=== PATIENT | male | born 1970 | race Caucasian/White ===

== ENCOUNTER 2019-08-30 23:18 | Emergency (ER) | payer SELFPAY ==
[~2019-08-30] VITALS: Ht 172.7 cm; Wt 84.0 kg
[2019-08-30 23:22] VITALS: BP 165/85
--- NOTE | 2019-08-30 23:31 | NUR ---
FIRST CONTACT WITH PT. PT STATES THAT HE HAS BLISTERS ALL OVER HIS FEET. IN TRIAGE, PT STATES HE IS UNABLE TO REMOVE SOCKS AND SHOES BECAUSE THEY ARE STUCK TO HIS FEET. PT'S AOX4. RESPS EVEN AND UNLABORED.
--- NOTE | 2019-08-30 23:45 | NUR ---
PT TOOK OFF THE SHOES AT THIS TIME. PT C/O PAIN 07/17. PT IS AGITATED.
[2019-08-30] MEDS ORDERED: ZIPRASIDONE 20MG CAPSULE ONE (23:59)
[2019-08-31] MEDS ORDERED: ZIPRASIDONE 20MG CAPSULE PO SCH
--- NOTE | 2019-08-31 00:01 | NUR ---
PT MEDICATED PER EMAR. PT TOLERATED WELL.
[2019-08-31] MEDS ORDERED: NEOSPORIN OINT. PKT 1 PACKET ONE (00:50)
--- NOTE | 2019-08-31 00:57 | NUR ---
DRESSING APPLIED AT THIS TIME. PT TOLERATED WELL.
--- NOTE | 2019-08-31 01:08 | NUR ---
Patient given discharge instructions and they have confirmed that they understand the instructions.
== END 2019-08-31 01:09 | disposition home or self-care (01) ==
LOC: ED 23:58
DX: S91.332A Puncture wound without foreign body, left foot, initial encounter (principal); S91.331A Puncture wound without foreign body, right foot, initial encounter; I10 Essential (primary) hypertension; X58.XXXA Exposure to other specified factors, initial encounter; Y93.89 Activity, other specified; Y92.410 Unspecified street and highway as the place of occurrence of the external cause; Y99.8 Other external cause status
CPT/HCPCS: 99282